=== PATIENT | female | born 1995 | race Caucasian/White ===

== ENCOUNTER 2020-05-16 17:54 | Inpatient (IN) | payer BC ==
[2020-05-16] MEDS ORDERED: Sodium Chloride 0.9% 10 ML Syringe FLUSH PRN (18:41)
[2020-05-16] MEDS ORDERED: Nalbuphine 10 MG/1 ML Vial IVPUSH PRN (18:41)
[2020-05-16] MEDS ORDERED: Oxytocin/Lactated Ringers 10 UNIT/1,000 ML BAG IV SCH ×2 (18:45)
--- NOTE | 2020-05-16 19:16 | PCM.LDHP ---
<Monalisa Malik - Last Filed: 05/16/20 19:05> L&D History of Present Illness - General Date of Service: 05/16/20 Admit Problem/Dx: Patient Status Order with Admit Dx/Problem 05/16/20 18:03 Patient Status [ADT] Routine 05/16/20 18:41 Patient Status [ADT] Routine Admission Diagnosis/Problem Admission Diagnosis/Problem Source of Information: Patient History Limitations: Reports: No Limitations - History of Present Illness Introduction:: Lisa Hwang is a GBS - A- 24 year old female at 38-5weeks gestation age (JERAMY 05/25/20) by 7 week US and LMP who presents today for SROM at 1530 [address]ST[address] She lives in [facility]; she reports that her fluid has been clear. Present Illness Comments:: Lisa Hwang is a GBS - A- 24 year old female at 38-5weeks gestation age (JERAMY 05/25/20) by 7 week US and LMP who presents today for SROM at 1530 MST. Patient has received routine care and denies any complications during her . She received the Tdap vaccine on 02/25/20 and received flu vaccine 12/31/19. Received RhoGAM 02/25/20. OBGYN History 05/30/17: of live female weighing 6 lbs 8 ounces at 37 weeks 5 days gestation; complicated by gestational hypertension G2: current labs: Blood type: A- Antibody screen: Negative Rubella status: immune Hepatitis B surface antigen: unknown RPR: negative HIV: negative Gonorrhea: Negative Chlamydia: negative Anatomy US: 12/31/19 Normal growth, CAROL, anatomy, repeat US 02/25/20 for low lying placenta; No evidence of low lying placenta on repeat US One hour glucose tolerance test: 128 Second trimester hematocrit/hemoglobin: 10.8 Platelets: 277,000 GBS status: negative - Related Data Allergies/Adverse Reactions: Allergies Allergy/AdvReac Type Severity Reaction Status Date / Time No Known Allergies Allergy Verified 03/09/20 19:21 Home Medications: Home Meds Aspirin [Halfprin] 81 mg PO DAILY 03/09/20 [History] No122/Iron/Folic Acid [ Multi Tablet] 1 each PO 03/09/20 [History] Sertraline [Zoloft] 100 mg PO BEDTIME 03/09/20 [History] H&P Review of Systems - Review of Systems: Review Of Systems: See Below General: Reports: No Symptoms HEENT: Reports: No Symptoms Pulmonary: Reports: No Symptoms Cardiovascular: Reports: No Symptoms Gastrointestinal: Reports: No Symptoms Genitourinary: Reports: No Symptoms Musculoskeletal: Reports: No Symptoms Skin: Reports: No Symptoms Psychiatric: Reports: No Symptoms Neurological: Reports: No Symptoms L&D Exam - Exam Exam: See Below - Vital Signs Weight: 120.202 kg - OB Specific Movement: Active Heart Tones: Present - Sweet Score Sweet Score Cervix Position: Posterior Sweet Score Consistency: Soft Sweet Score Effacement: >80% Sweet Score Dilation: 1-2 cm Sweet Score Infant's Station: -2 Sweet Score Total: 7 - Exam General: Alert, Oriented HEENT: Conjunctiva Clear, EOMI Lungs: Clear to Auscultation, Normal Respiratory Effort Cardiovascular: Regular Rate, Regular Rhythm GI/Abdominal Exam: Normal Bowel Sounds, Soft, Non-Tender Extremities: Normal Inspection, No Pedal Edema, Normal Capillary Refill Skin: Warm, Dry, Intact Psychiatric: Alert, Normal Affect, Normal Mood - Problem List (1) 38 weeks gestation of SNOMED Code(s): 01426112 ICD Code: Z3A.38 - 38 WEEKS GESTATION OF Status: Acute Current Visit: Yes (2) Spontaneous rupture of membranes SNOMED Code(s): 761759266 ICD Code: [id number] - Status: Acute Current Visit: Yes (3) History of gestational hypertension SNOMED Code(s): 243328829 ICD Code: Z87.59 - PERSONAL HISTORY OF COMP OF PREG, CHLDBRTH AND THE PUERP Status: Acute Current Visit: Yes (4) Anxiety and depression SNOMED Code(s): 927905254 ICD Code: F41.9 - ANXIETY DISORDER, UNSPECIFIED; F32.9 - MAJOR DEPRESSIVE DISORDER, SINGLE EPISODE, UNSPECIFIED Status: Acute Current Visit: Yes Problem List Initiated/Reviewed/Updated: Yes Orders Last 24hrs: Active Orders 24 hr Category Date Time Status Patient Status [ADT] Routine ADT 05/16/20 18:41 Active Activity as Tolerated [RC] PFP Care 05/16/20 18:41 Active Communication Order [RC] ASDIRECTED Care 05/16/20 18:41 Active Heart Tones [RC] ASDIRECTED Care 05/16/20 18:42 Active Non Stress Test [RC] PER UNIT ROUTINE Care 05/16/20 18:03 Active Notify Provider [RC] PFP Care 05/16/20 18:41 Active Notify Provider [RC] PRN Care 05/16/20 18:41 Active Peripheral IV Care [RC] . DIRECTED Care 05/16/20 18:42 Active Urinary Catheter Assessment [RC] ASDIRECTED Care 05/16/20 18:41 Active Vital Signs [RC] PER UNIT ROUTINE Care 05/16/20 18:03 Active Regular Diet [DIET] Diet 05/16/20 Dinner Active BLOOD BANK HOLD SPECIMEN [BBK] Routine Lab 05/16/20 18:41 Ordered CBC WITH AUTO DIFF [HEME] Routine Lab 05/16/20 18:41 Ordered CORONAVIRUS COVID-19 HEAVEN [MOLEC] Stat Lab 05/16/20 18:30 Received RAPID PLASMA REAGIN,RPR [CHEM] Routine Lab 05/16/20 18:41 Ordered Lactated Ringers [Ringers, Lactated] 1,000 ml Med 05/16/20 18:45 Active IV ASDIRECTED Nalbuphine [Nubain] Med 05/16/20 18:41 Active 10 mg IVPUSH Q2H PRN Oxytocin/Lactated Ringers [Pitocin in LR 10 Units/1,000 Med 05/16/20 18:45 Active ML] 10 unit in 1,000 ml IV .CONTINUOUS Oxytocin/Lactated Ringers [Pitocin in LR 10 Units/1,000 Med 05/16/20 18:45 Active ML] 10 unit in 1,000 ml IV TITRATE Sodium Chloride 0.9% [Saline Flush] Med 05/16/20 18:41 Active 10 ml FLUSH ASDIRECTED PRN Electronic Heart Tones Ext w TOCO [WOMSER] Oth 05/16/20 18:41 Ordered Routine Electronic Heart Tones Internal [WOMSER] Per Unit Oth 05/16/20 18:41 Ordered Routine Peripheral IV Insertion Adult [OM.PC] Routine Oth 05/16/20 18:41 Ordered Resuscitation Status Routine Resus Stat 05/16/20 18:03 Ordered Medication Orders Lactated Ringer's (Ringers, Lactated) 1,000 mls @ 100 mls/hr IV ASDIRECTED SAKSHI Oxytocin/Lactated Ringer's (Pitocin In Lr 10 Units/1,000 Ml) 10 unit in 1,000 mls @ 12 mls/hr IV TITRATE SAKSHI; Protocol Oxytocin/Lactated Ringer's (Pitocin In Lr 10 Units/1,000 Ml) 10 unit in 1,000 mls @ 500 mls/hr IV .CONTINUOUS SAKSHI Nalbuphine HCl (Nalbuphine 10 Mg/1 Ml Vial) 10 mg IVPUSH Q2H PRN PRN Reason: Pain Sodium Chloride (Sodium Chloride 0.9% 10 Ml Syringe) 10 ml FLUSH ASDIRECTED PRN PRN Reason: Keep Vein Open Assessment/Plan Comment:: Lisa Hwang is a GBS - A- 24 year old female at 38-5weeks gestation age (JERAMY 05/25/20) by LMP who presents today for SROM at 1530 MST with clear fluid. 1. Active labor - augmentation of labor with pitocin as indicated 2. Continuous monitoring 3. GBS - 4. A- with negative antibody screen; Rhogam given 02/25/20. Rhogam to be given post delivery 5. Rubella immune 6. Activity as tolerated 7. Small amounts of regular diet 8. Desires epidural 9. Plans to breastfeed 10. Anticipate vaginal delivery unless otherwise indicated 11. Anxiety/depression: Continue Sertaline 100 mg once daily <Robbie Orta F - Last Filed: 05/16/20 19:37> L&D History of Present Illness - General Admit Problem/Dx: Patient Status Order with Admit Dx/Problem 05/16/20 18:03 Patient Status [ADT] Routine 05/16/20 18:41 Patient Status [ADT] Routine Admission Diagnosis/Problem Admission Diagnosis/Problem Orders Last 24hrs: Active Orders 24 hr Category Date Time Status Patient Status [ADT] Routine ADT 05/16/20 18:41 Active Activity as Tolerated [RC] PFP Care 05/16/20 18:41 Active Communication Order [RC] ASDIRECTED Care 05/16/20 18:41 Active Heart Tones [RC] ASDIRECTED Care 05/16/20 18:42 Active Non Stress Test [RC] PER UNIT ROUTINE Care 05/16/20 18:03 Active Notify Provider [RC] ASDIRECTED Care 05/16/20 19:31 Active Notify Provider [RC] PFP Care 05/16/20 18:41 Active Notify Provider [RC] PRN Care 05/16/20 18:41 Active Oxygen Therapy [RC] ASDIRECTED Care 05/16/20 19:31 Active Peripheral IV Care [RC] . DIRECTED Care 05/16/20 18:42 Active Pulse Oximetry [RC] ASDIRECTED Care 05/16/20 19:31 Active Urinary Catheter Assessment [RC] ASDIRECTED Care 05/16/20 18:41 Active Vital Signs [RC] PER UNIT ROUTINE Care 05/16/20 18:03 Active Regular Diet [DIET] Diet 05/16/20 Dinner Active BLOOD BANK HOLD SPECIMEN [BBK] Routine Lab 05/16/20 18:41 Ordered CBC WITH AUTO DIFF [HEME] Routine Lab 05/16/20 19:02 Received CORONAVIRUS COVID-19 HEAVEN [MOLEC] Stat Lab 05/16/20 18:30 Received RAPID PLASMA REAGIN,RPR [CHEM] Routine Lab 05/16/20 19:02 Received Bupivacaine/fentaNYL/NS [fentaNYL/Bupivacaine/NS 2 MCG- Med 05/16/20 19:45 Active 0.125% 100 ML] 100 ml EPIDUR ASDIRECTED Lactated Ringers [Ringers, Lactated] 1,000 ml Med 05/16/20 18:45 Active IV ASDIRECTED Nalbuphine [Nubain] Med 05/16/20 18:41 Active 10 mg IVPUSH Q2H PRN Ondansetron [Zofran] Med 05/16/20 19:31 Active 4 mg IVPUSH ONETIME PRN Oxytocin/Lactated Ringers [Pitocin in LR 10 Units/1,000 Med 05/16/20 18:45 Active ML] 10 unit in 1,000 ml IV .CONTINUOUS Oxytocin/Lactated Ringers [Pitocin in LR 10 Units/1,000 Med 05/16/20 18:45 Active ML] 10 unit in 1,000 ml IV TITRATE Phenylephrine/Normal Saline [Phenylephrine in NS 100 Med 05/16/20 19:31 Active MCG/ML] 0.1 mg IVPUSH Q10M PRN Sodium Chloride 0.9% [Saline Flush] Med 05/16/20 18:41 Active 10 ml FLUSH ASDIRECTED PRN ePHEDrine [ePHEDrine sulfate] Med 05/16/20 19:31 Active 5 mg IVPUSH ASDIRECTED PRN fentaNYL [Sublimaze] Med 05/16/20 19:31 Active 100 mcg EPIDUR Q3H PRN Electronic Heart Tones Ext w TOCO [WOMSER] Oth 05/16/20 18:41 Ordered Routine Electronic Heart Tones Internal [WOMSER] Per Unit Oth 05/16/20 18:41 Ordered Routine Peripheral IV Insertion Adult [OM.PC] Routine Oth 05/16/20 18:41 Ordered Resuscitation Status Routine Resus Stat 05/16/20 18:03 Ordered Medication Orders Ephedrine Sulfate (Ephedrine 50 Mg/Ml Sdv) 5 mg IVPUSH ASDIRECTED PRN PRN Reason: Hypotension Fentanyl (Fentanyl 100 Mcg/2 Ml Sdv) 100 mcg EPIDUR Q3H PRN PRN Reason: Pain Fentanyl/Bupivacaine HCl (Bupivacaine/Fentanyl/Ns 100 Ml Bag) 100 ml EPIDUR ASDIRECTED SAKSHI Lactated Ringer's (Ringers, Lactated) 1,000 mls @ 100 mls/hr IV ASDIRECTED SAKSHI Oxytocin/Lactated Ringer's (Pitocin In Lr 10 Units/1,000 Ml) 10 unit in 1,000 mls @ 12 mls/hr IV TITRATE SAKSHI; Protocol Oxytocin/Lactated Ringer's (Pitocin In Lr 10 Units/1,000 Ml) 10 unit in 1,000 mls @ 500 mls/hr IV .CONTINUOUS SAKSHI Nalbuphine HCl (Nalbuphine 10 Mg/1 Ml Vial) 10 mg IVPUSH Q2H PRN PRN Reason: Pain Ondansetron HCl (Ondansetron 4 Mg/2 Ml Sdv) 4 mg IVPUSH ONETIME PRN PRN Reason: Nausea/Vomiting Phenylephrine HCl (Phenylephrine/Normal Saline 100 Mcg/Ml 10 Ml Syringe) 0.1 mg IVPUSH Q10M PRN PRN Reason: Hypotension Sodium Chloride (Sodium Chloride 0.9% 10 Ml Syringe) 10 ml FLUSH ASDIRECTED PRN PRN Reason: Keep Vein Open
[2020-05-16] MEDS ORDERED: ePHEDrine 50 MG/ML SDV IVPUSH PRN (19:31)
[2020-05-16] MEDS ORDERED: Ondansetron 4 MG/2 ML SDV IVPUSH PRN (19:31)
[2020-05-16] MEDS ORDERED: Phenylephrine/Normal Saline 100 MCG/ML 10 ML Syringe IVPUSH PRN (19:31)
[2020-05-16] MEDS ORDERED: fentaNYL 100 MCG/2 ML SDV EPIDUR PRN (19:31)
--- NOTE | 2020-05-16 19:35 | PCM.PREANE ---
Preanesthetic Assessment - Procedure Proposed Procedure: Epidural - Anesthesia/Transfusion/Family Hx Anesthesia History: Prior Anesthesia Without Reaction Family History of Anesthesia Reaction: No Transfusion History: No Prior Transfusion(s) Intubation History: Unknown - Review of Systems General: No Symptoms Pulmonary: No Symptoms Cardiovascular: No Symptoms ( History of Gestational HTN with prior .), Palpitations Gastrointestinal: No Symptoms (GERD) Neurological: No Symptoms, Headache (migraines) Other: Reports: Depression, Anxiety - Physical Assessment NPO Status Date: 05/16/20 NPO Status Time: 19:30 Vital Signs: HR:91 Sat:98% Temp:36.9 B/P:130/80 Resp:16 Height: 1.75 m Weight: 120.202 kg ASA Class: 3 Mental Status: Alert & Oriented x3 Airway Class: Mallampati = 2 Dentition: Reports: Normal Dentition, Caries Thyro-Mental Finger Breadths: 3 Mouth Opening Finger Breadths: 3 ROM/Head Extension: Full Lungs: Clear to Auscultation, Normal Respiratory Effort Cardiovascular: Regular Rate, Regular Rhythm, No Murmurs - Lab Values: All labs reviewed and noted and within acceptable ranges to proceed with epidural if desired. - Allergies Allergies/Adverse Reactions: Allergies Allergy/AdvReac Type Severity Reaction Status Date / Time No Known Allergies Allergy Verified 03/09/20 19:21 - Anesthesia Plan Pre-Op Medication Ordered: None - Acknowledgements Anesthesia Type Planned: Epidural Pt an Appropriate Candidate for the Planned Anesthesia: Yes Alternatives and Risks of Anesthesia Discussed w Pt/Guardian: Yes Pt/Guardian Understands and Agrees with Anesthesia Plan: Yes PreAnesthesia Questionnaire - HOME MEDS Home Medications: Home Meds Aspirin [Halfprin] 81 mg PO DAILY 03/09/20 [History] No122/Iron/Folic Acid [ Multi Tablet] 1 each PO DAILY 03/09/20 [History] Sertraline [Zoloft] 100 mg PO BEDTIME 03/09/20 [History] Ferrous Sulfate [Iron] 325 mg PO DAILY 05/16/20 [History] - CURRENT (IN HOUSE) MEDS Current Meds: Current Medications Ephedrine Sulfate (Ephedrine 50 Mg/Ml Sdv) 5 mg IVPUSH ASDIRECTED PRN PRN Reason: Hypotension Fentanyl (Fentanyl 100 Mcg/2 Ml Sdv) 100 mcg EPIDUR Q3H PRN PRN Reason: Pain Fentanyl/Bupivacaine HCl (Bupivacaine/Fentanyl/Ns 100 Ml Bag) 100 ml EPIDUR ASDIRECTED SAKSHI Lactated Ringer's (Ringers, Lactated) 1,000 mls @ 100 mls/hr IV ASDIRECTED SAKSHI Oxytocin/Lactated Ringer's (Pitocin In Lr 10 Units/1,000 Ml) 10 unit in 1,000 mls @ 12 mls/hr IV TITRATE SAKSHI; Protocol Oxytocin/Lactated Ringer's (Pitocin In Lr 10 Units/1,000 Ml) 10 unit in 1,000 mls @ 500 mls/hr IV .CONTINUOUS SAKSHI Nalbuphine HCl (Nalbuphine 10 Mg/1 Ml Vial) 10 mg IVPUSH Q2H PRN PRN Reason: Pain Ondansetron HCl (Ondansetron 4 Mg/2 Ml Sdv) 4 mg IVPUSH ONETIME PRN PRN Reason: Nausea/Vomiting Phenylephrine HCl (Phenylephrine/Normal Saline 100 Mcg/Ml 10 Ml Syringe) 0.1 mg IVPUSH Q10M PRN PRN Reason: Hypotension Sodium Chloride (Sodium Chloride 0.9% 10 Ml Syringe) 10 ml FLUSH ASDIRECTED PRN PRN Reason: Keep Vein Open
[2020-05-16] MEDS ORDERED: Bupivacaine/fentaNYL/NS 100 ML Bag EPIDUR SCH (19:45)
[2020-05-16] MEDS: Lactated Ringers 1,000 ML IV SCH ×2 (20:13→22:23)
[2020-05-17] MEDS: Lactated Ringers 1,000 ML IV SCH (02:07)
[2020-05-17] MEDS ORDERED: Witch Hazel Medicated Pads 40/Jar TOP PRN (04:54)
[2020-05-17] MEDS ORDERED: Benzocaine/Menthol 20%-0.5% Spray 56 GM Canister TOP PRN (04:54)
[2020-05-17] MEDS ORDERED: Docusate Sodium 100 MG Cap PO PRN (04:54)
[2020-05-17] MEDS ORDERED: Acetaminophen 325 MG Tab PO PRN (04:54)
--- NOTE | 2020-05-17 05:10 | PCM.DEL ---
<Monalisa Malik - Last Filed: 05/17/20 05:00> L & D Note - General Info Date of Service: 05/17/20 Mother's Due Date: 05/25/20 - Delivery Note Labor: Spontaneous Cervical Ripening Method: Oxytocin Delivery Outcome: Livebirth Delivery Method: Spontaneous Vaginal Delivery-Single Infant Delivery Mode: Spontaneous Presentation: Left Occiput Anterior (GERTRUDE) Nuchal Cord: Present, Reduced (Loose nuchal cord reduced over the infant's head) Anesthesia Type: Epidural Amniotic Fluid Description: Clear Episiotomy Type: None Laceration: 1st Degree (Midline laceration, noted abrasion periurethral that was hemodynamically stable) Suture type: Other (Monocryl) Suture size: 2-0 Placenta: Intact, Spontaneous Cord: 3 Vessels Estimated Blood Loss: 100 Resuscitation Needed: No : Bulb Syringe, Stimulated, Warmed Provider: Marito Archibald Score 1 min: 9 Score 5 min: 9 Second Stage Interventions: Reports: Encouragement Given Delivery Comments (Free Text/Narrative):: Stage I: Lisa Hwang is a GBS - A- 24 year old female at 38-5weeks gestation age (JERAMY 05/25/20) by 7 week US and LMP who presented to L&D today for SROM at 1530 MST with clear fluid. Pitocin was given for augmentation of labor. Patient progressed to complete and pushing Stage II: of a live female weighing 3400 g (7 lbs 8 ounces) at 0431 with APGARs of 9/9. Single loose nuchal cord was reduced over the 's head. The was placed on the mother's abdomen, was suctioned, dried and stimulated. The cord was then cut after a period of time by the 's father and the infant went to the warmer for vitals. The vaginal mucosa was inspected; noted midline first degree laceration. This was repaired with a single figure of 8 stitch. Further inspection demonstrated a small hemodynamically stable abrasion periurethral. Stage III: Intact Placenta was delivered at 0441 in Siddiqi presentation. Placenta inspected and found to be intact. Noted 3 vessel cord. Uterus appeared firm and at the umbilicus. Mother and baby stable to recovery. - General Info Date of Service: 03/23/21 - Patient Data Vitals - Most Recent: Last Vital Signs Temp 98.4 F 05/16/20 20:37 Pulse 91 05/16/20 20:37 Resp 16 05/16/20 20:37 BP 130/80 05/16/20 20:37 Pulse Ox 98 05/16/20 20:37 Weight - Most Recent: 120.202 kg I&O - Last 24 Hours: Intake & Output 05/16/20 05/16/20 05/17/20 14:59 22:59 06:59 Intake Total 1999 Balance 1999 Lab Results Last 24 Hours: Laboratory Results - last 24 hr 05/16/20 05/16/20 05/16/20 Range/Units 18:30 19:02 19:02 WBC 10.71 H (3.98-10.04) K/mm3 RBC 3.97 L (3.98-5.22) M/mm3 Hgb 11.3 (11.2-15.7) gm/dl Hct 35.7 (34.1-44.9) % MCV 89.9 (79.4-94.8) fl MCH 28.5 (25.6-32.2) pg MCHC 31.7 L (32.2-35.5) g/dl RDW Std Deviation 47.8 H (36.4-46.3) fL Plt Count 337 (182-369) K/mm3 MPV 10.1 (9.4-12.3) fl Neut % (Auto) 70.8 (34.0-71.1) % Lymph % (Auto) 19.6 (19.3-51.7) % Maverick % (Auto) 8.1 (4.7-12.5) % Eos % (Auto) 1.0 (0.7-5.8) Baso % (Auto) 0.1 (0.1-1.2) % Neut # (Auto) 7.58 H (1.56-6.13) K/mm3 Lymph # (Auto) 2.10 (1.18-3.74) K/mm3 Maverick # (Auto) 0.87 H (0.24-0.36) K/mm3 Eos # (Auto) 0.11 (0.04-0.36) K/mm3 Baso # (Auto) 0.01 (0.01-0.08) K/mm3 RPR Non-reactive (NONREACTIVE) SARS-CoV-2 RNA (HEAVEN) Negative (NEGATIVE) Med Orders - Current: Current Medications Acetaminophen (Acetaminophen 325 Mg Tab) 650 mg PO Q4H PRN PRN Reason: mild pain or fever Benzocaine/Menthol (Benzocaine/Menthol 20%-0.5% Brigantine 56 Gm Canister) 0 gm TOP ASDIRECTED PRN PRN Reason: Perineal Comfort Measure Docusate Sodium (Docusate Sodium 100 Mg Cap) 100 mg PO BID PRN PRN Reason: Constipation Ephedrine Sulfate (Ephedrine 50 Mg/Ml Sdv) 5 mg IVPUSH ASDIRECTED PRN PRN Reason: Hypotension Fentanyl (Fentanyl 100 Mcg/2 Ml Sdv) 100 mcg EPIDUR Q3H PRN PRN Reason: Pain Last Admin: 05/16/20 22:02 Dose: 100 mcg Documented by: Fentanyl/Bupivacaine HCl (Bupivacaine/Fentanyl/Ns 100 Ml Bag) 100 ml EPIDUR ASDIRECTED SAKSHI Last Admin: 05/16/20 22:02 Dose: 100 ml Documented by: Lactated Ringer's (Ringers, Lactated) 1,000 mls @ 100 mls/hr IV ASDIRECTED SAKSHI Last Admin: 05/17/20 02:07 Dose: 100 mls/hr Documented by: Oxytocin/Lactated Ringer's (Pitocin In Lr 10 Units/1,000 Ml) 10 unit in 1,000 mls @ 12 mls/hr IV TITRATE SAKSHI; Protocol Last Titration: 05/17/20 02:07 Dose: 1 munits/min, 6 mls/hr Documented by: Oxytocin/Lactated Ringer's (Pitocin In Lr 10 Units/1,000 Ml) 10 unit in 1,000 mls @ 500 mls/hr IV .CONTINUOUS SAKSHI Ibuprofen (Ibuprofen 600 Mg Tab) 600 mg PO Q4H PRN PRN Reason: Mild pain or fever Nalbuphine HCl (Nalbuphine 10 Mg/1 Ml Vial) 10 mg IVPUSH Q2H PRN PRN Reason: Pain Non-Formulary Medication (Sertraline) 100 mg PO BEDTIME SAKSHI Ondansetron HCl (Ondansetron 4 Mg/2 Ml Sdv) 4 mg IVPUSH ONETIME PRN PRN Reason: Nausea/Vomiting Phenylephrine HCl (Phenylephrine/Normal Saline 100 Mcg/Ml 10 Ml Syringe) 0.1 mg IVPUSH Q10M PRN PRN Reason: Hypotension Prenat Multivit/Seed Yeast Operator/Iron/Folic Ac ( Multivitamin With Calcium/Folic Acid/Iron Tab) 1 each PO DAILY SAKSHI Sodium Chloride (Sodium Chloride 0.9% 10 Ml Syringe) 10 ml FLUSH ASDIRECTED PRN PRN Reason: Keep Vein Open Witch Nandini (Witch Nandini Medicated Pads 40/Jar) 1 pad TOP ASDIRECTED PRN PRN Reason: Perineal Comfort Measure - Problem List & Annotations (1) 38 weeks gestation of SNOMED Code(s): 34994748 Code(s): Z3A.38 - 38 WEEKS GESTATION OF Status: Acute (2) Spontaneous rupture of membranes SNOMED Code(s): 288309250 Code(s): TYU6948 - Status: Acute (3) History of gestational hypertension SNOMED Code(s): 914257193 Code(s): Z87.59 - PERSONAL HISTORY OF COMP OF PREG, CHLDBRTH AND THE PUERP Status: Acute (4) Anxiety and depression SNOMED Code(s): 387196623 Code(s): F41.9 - ANXIETY DISORDER, UNSPECIFIED; F32.9 - MAJOR DEPRESSIVE DISORDER, SINGLE EPISODE, UNSPECIFIED Status: Acute (5) Spontaneous vaginal delivery SNOMED Code(s): 168122718 Code(s): O80 - ENCOUNTER FOR FULL-TERM UNCOMPLICATED DELIVERY Status: Acute - My Orders Last 24 Hours: My Active Orders 05/17/20 04:53 Patient Status Manage Transfer [TRANSFER] Routine 05/17/20 04:54 May Shower [RC] ASDIRECTED Acetaminophen [TylenoL] 650 mg PO Q4H PRN Benzocaine/Menthol [Dermoplast Pain Relief Brigantine] See Dose Instructions TOP ASDIRECTED PRN Docusate Sodium [Colace] 100 mg PO BID PRN Ibuprofen [Motrin] 600 mg PO Q4H PRN witch Nandini [Tucks] 1 pad TOP ASDIRECTED PRN 05/17/20 04:55 Activity as Tolerated [RC] PER UNIT ROUTINE Vital Signs [RC] ASDIRECTED Assess Lochia [WOMSER] Per Unit Routine Assess Uterine Involution [WOMSER] Per Unit Routine Breast Pump [WOMSER] Per Unit Routine Ice Therapy [OM.PC] Per Unit Routine Medication Administration Instruction [OM.PC] Routine Perineal Care [OM.PC] Per Unit Routine Sitz Bath [OM.PC] Per Unit Routine 05/17/20 05:00 Heat Therapy [OM.PC] PRN 05/17/20 09:00 Vit with Ca/FA/Iron [ Plus Iron] 1 each PO DAILY 05/17/20 21:00 Sertraline 100 mg PO BEDTIME 05/18/20 05:00 Heat Therapy [OM.PC] PRN - Plan Plan:: of a live female weighing 3400 g (7 lbs 8 ounces) at 0431 with APGARs of 9/9 to a GBS - A- 24 year old G2 now P2002 female at 38-6 weeks gestation age (JERAMY 05/25/20). 1. Post day 0 2. GBS - 3. A- with negative antibody screen; Rhogam given 02/25/20. Rhogam to be given 4. Rubella immune 5. Activity as tolerated 6. Regular diet 7. Plans to breastfeed 8. Anxiety/depression: Continue Sertaline 100 mg once daily 9. History of gestational hypertension: continue to monitor blood pressure 10. care per unit routine 11. Anticipate discharge in 24-48 hours pending keno manager's recommendation <Robbie Orta F - Last Filed: 05/19/20 06:23> - Patient Data Vitals - Most Recent: Last Vital Signs Temp 37.1 C 05/18/20 09:00 Pulse 75 05/18/20 09:00 Resp 18 05/18/20 09:00 BP 151/88 H 05/18/20 09:00 Pulse Ox 97 05/18/20 09:00 I&O - Last 24 Hours: Intake & Output 05/18/20 05/18/20 05/19/20 14:59 22:59 06:59 Intake Total 120 Balance 120 Med Orders - Current: Current Medications Discontinued Medications Acetaminophen (Acetaminophen 325 Mg Tab) 650 mg PO Q4H PRN PRN Reason: mild pain or fever Benzocaine/Menthol (Benzocaine/Menthol 20%-0.5% Brigantine 56 Gm Canister) 0 gm TOP ASDIRECTED PRN PRN Reason: Perineal Comfort Measure Last Admin: 05/17/20 06:17 Dose: 1 canister Documented by: Bupivacaine HCl (Bupivacaine 0.25% 10 Ml Sdv) 10 ml .ROUTE .STK-MED ONE Stop: 05/17/20 23:01 Docusate Sodium (Docusate Sodium 100 Mg Cap) 100 mg PO BID PRN PRN Reason: Constipation Last Admin: 05/17/20 06:17 Dose: 100 mg Documented by: Ephedrine Sulfate (Ephedrine 50 Mg/Ml Sdv) 5 mg IVPUSH ASDIRECTED PRN PRN Reason: Hypotension Fentanyl (Fentanyl 100 Mcg/2 Ml Sdv) 100 mcg EPIDUR Q3H PRN PRN Reason: Pain Last Admin: 05/16/20 22:02 Dose: 100 mcg Documented by: Fentanyl/Bupivacaine HCl (Bupivacaine/Fentanyl/Ns 100 Ml Bag) 100 ml EPIDUR ASDIRECTED SAKSHI Last Admin: 05/16/20 22:02 Dose: 100 ml Documented by: Lactated Ringer's (Ringers, Lactated) 1,000 mls @ 100 mls/hr IV ASDIRECTED [facility] Last Admin: 05/17/20 02:07 Dose: 100 mls/hr Documented by: Oxytocin/Lactated Ringer's (Pitocin In Lr 10 Units/1,000 Ml) 10 unit in 1,000 mls @ 12 mls/hr IV TITRATE SAKSHI; Protocol Last Titration: 05/17/20 02:07 Dose: 1 munits/min, 6 mls/hr Documented by: Oxytocin/Lactated Ringer's (Pitocin In Lr 10 Units/1,000 Ml) 10 unit in 1,000 mls @ 500 mls/hr IV .CONTINUOUS [facility] Ibuprofen (Ibuprofen 600 Mg Tab) 600 mg PO Q4H PRN PRN Reason: Mild pain or fever Last Admin: 05/17/20 21:53 Dose: 600 mg Documented by: Nalbuphine HCl (Nalbuphine 10 Mg/1 Ml Vial) 10 mg IVPUSH Q2H PRN PRN Reason: Pain Ondansetron HCl (Ondansetron 4 Mg/2 Ml Sdv) 4 mg IVPUSH ONETIME PRN PRN Reason: Nausea/Vomiting Phenylephrine HCl (Phenylephrine/Normal Saline 100 Mcg/Ml 10 Ml Syringe) 0.1 mg IVPUSH Q10M PRN PRN Reason: Hypotension Prenat Multivit/[place]/Iron/Folic Ac ( Multivitamin With Calcium/Folic Acid/Iron Tab) 1 each PO DAILY [facility] Last Admin: 05/18/20 10:55 Dose: Not Given Documented by: Sertraline HCl (Sertraline 50 Mg Tab) 100 mg PO BEDTIME [facility] Last Admin: 05/17/20 20:15 Dose: 100 mg Documented by: Sodium Chloride (Sodium Chloride 0.9% 10 Ml Syringe) 10 ml FLUSH ASDIRECTED PRN PRN Reason: Keep Vein Open Witch Nandini (Witch Nandini Medicated Pads 40/Jar) 1 pad TOP ASDIRECTED PRN PRN Reason: Perineal Comfort Measure Last Admin: 05/17/20 06:17 Dose: 1 can Documented by: - Problem List Review Problem List Initiated/Reviewed/Updated: Yes
[2020-05-17] MEDS: Ibuprofen 600 MG Tab PO PRN ×3 (06:18→21:53)
[2020-05-17] MEDS: Prenatal Multivitamin with Calcium/Folic Acid/Iron Tab PO SCH (13:26)
[2020-05-17] MEDS ORDERED: Sertraline 50 MG Tab PO SCH (21:00)
[2020-05-17] MEDS ORDERED: Bupivacaine 0.25% 10 ML SDV ONE (23:00)
--- NOTE | 2020-05-18 06:48 | PCM.PNPP ---
- General Info Date of Service: 05/18/20 Functional Status: Reports: Pain Controlled, Tolerating Diet, Ambulating, Urinating - Review of Systems General: Reports: No Symptoms Pulmonary: Reports: No Symptoms Cardiovascular: Reports: No Symptoms Gastrointestinal: Reports: No Symptoms Genitourinary: Reports: No Symptoms Musculoskeletal: Reports: No Symptoms Neurological: Reports: No Symptoms - Patient Data Vital Signs - Most Recent: Last Vital Signs Temp 36.5 C 05/18/20 03:18 Pulse 73 05/18/20 03:18 Resp 16 05/18/20 03:18 BP 143/69 H 05/18/20 03:18 Pulse Ox 98 05/18/20 03:18 Weight - Most Recent: 120.202 kg I&O - Last 24 Hours: Intake & Output 05/17/20 05/17/20 05/18/20 14:59 22:59 06:59 Intake Total 2 Balance 2 Lab Results - Last 24 Hours: Laboratory Results - last 24 hr 05/17/20 Range/Units 09:36 Blood Type A NEGATIVE Gel Antibody Screen Negative Screen 0 ros/5 flds - neg RhIG Candidate? Yes Rhogam Indicated Yes, baby rh pos H Med Orders - Current: Current Medications Acetaminophen (Acetaminophen 325 Mg Tab) 650 mg PO Q4H PRN PRN Reason: mild pain or fever Benzocaine/Menthol (Benzocaine/Menthol 20%-0.5% [place] 56 Gm Canister) 0 gm TOP ASDIRECTED PRN PRN Reason: Perineal Comfort Measure Last Admin: 05/17/20 06:17 Dose: 1 canister Documented by: Docusate Sodium (Docusate Sodium 100 Mg Cap) 100 mg PO BID PRN PRN Reason: Constipation Last Admin: 05/17/20 06:17 Dose: 100 mg Documented by: Ibuprofen (Ibuprofen 600 Mg Tab) 600 mg PO Q4H PRN PRN Reason: Mild pain or fever Last Admin: 05/17/20 21:53 Dose: 600 mg Documented by: Prenat Multivit/[place]/Iron/Folic Ac ( Multivitamin With Calcium/Folic Acid/Iron Tab) 1 each PO DAILY [facility] Last Admin: 05/17/20 13:26 Dose: Not Given Documented by: Sertraline HCl (Sertraline 50 Mg Tab) 100 mg PO BEDTIME SAKSHI Last Admin: 05/17/20 20:15 Dose: 100 mg Documented by: Rey Delatorre (Rey Delatorre Medicated Pads 40/Jar) 1 pad TOP ASDIRECTED PRN PRN Reason: Perineal Comfort Measure Last Admin: 05/17/20 06:17 Dose: 1 can Documented by: Discontinued Medications Bupivacaine HCl (Bupivacaine 0.25% 10 Ml Sdv) 10 ml .ROUTE .STK-MED ONE Stop: 05/17/20 23:01 Ephedrine Sulfate (Ephedrine 50 Mg/Ml Sdv) 5 mg IVPUSH ASDIRECTED PRN PRN Reason: Hypotension Fentanyl (Fentanyl 100 Mcg/2 Ml Sdv) 100 mcg EPIDUR Q3H PRN PRN Reason: Pain Last Admin: 05/16/20 22:02 Dose: 100 mcg Documented by: Fentanyl/Bupivacaine HCl (Bupivacaine/Fentanyl/Ns 100 Ml Bag) 100 ml EPIDUR ASDIRECTED SAKSHI Last Admin: 05/16/20 22:02 Dose: 100 ml Documented by: Lactated Ringer's (Ringers, Lactated) 1,000 mls @ 100 mls/hr IV ASDIRECTED SAKSHI Last Admin: 05/17/20 02:07 Dose: 100 mls/hr Documented by: Oxytocin/Lactated Ringer's (Pitocin In Lr 10 Units/1,000 Ml) 10 unit in 1,000 mls @ 12 mls/hr IV TITRATE SAKSHI; Protocol Last Titration: 05/17/20 02:07 Dose: 1 munits/min, 6 mls/hr Documented by: Oxytocin/Lactated Ringer's (Pitocin In Lr 10 Units/1,000 Ml) 10 unit in 1,000 mls @ 500 mls/hr IV .CONTINUOUS SAKSHI Nalbuphine HCl (Nalbuphine 10 Mg/1 Ml Vial) 10 mg IVPUSH Q2H PRN PRN Reason: Pain Ondansetron HCl (Ondansetron 4 Mg/2 Ml Sdv) 4 mg IVPUSH ONETIME PRN PRN Reason: Nausea/Vomiting Phenylephrine HCl (Phenylephrine/Normal Saline 100 Mcg/Ml 10 Ml Syringe) 0.1 mg IVPUSH Q10M PRN PRN Reason: Hypotension Sodium Chloride (Sodium Chloride 0.9% 10 Ml Syringe) 10 ml FLUSH ASDIRECTED PRN PRN Reason: Keep Vein Open - Interaction Disposition, : in Room with Family Interaction: Holding Infant Feeding: Breastfed Infant; Nursed Well Support Person: Significant Other - Recovery Exam Fundal Tone: Firm Fundal Level: 1 Fingerbreadths Below Umbilicus Fundal Placement: Midline Lochia Amount: Small Lochia Color: Rubra/Red Perineum Description: Other (see below) Other Perinuem Description: 1st degree with repair Episiotomy/Laceration: Approximated Bladder Status: Voiding Urinary Elimination: Voided - Exam General: Alert, Oriented, Cooperative GI/Abdominal Exam: Soft, Non-Tender - Problem List & Annotations (1) 38 weeks gestation of SNOMED Code(s): 78196384 Code(s): Z3A.38 - 38 WEEKS GESTATION OF Status: Acute (2) Gestational hypertension SNOMED Code(s): 251366886 Code(s): O13.9 - GESTATIONAL HTN W/O SIGNIFICANT PROTEINURIA, UNSP TRIMESTER Status: Acute Qualifiers: Trimester: third trimester Qualified Code(s): O13.3 - Gestational [-induced] hypertension without significant proteinuria, third trimester (3) Spontaneous vaginal delivery SNOMED Code(s): 425911557 Code(s): O80 - ENCOUNTER FOR FULL-TERM UNCOMPLICATED DELIVERY Status: Acute - Problem List Review Problem List Initiated/Reviewed/Updated: Yes - Assessment Assessment:: PPD#1 - Plan Plan:: Routine cares Breast feeding Received Rhogam yesterday, baby RH positive BP check in 1 week, currently asymptomatic Discharge home today
--- NOTE | 2020-05-18 06:52 | PCM.DCSUM1 ---
Discharge Summary - Discharge Data Discharge Date: 05/18/20 Discharge Disposition: Home, Self-Care 01 Condition: Good - Referral to Home Health Primary Care Physician: Heather Martinez MD - Patient Summary/Data Complications: None Consults: None Recommended Follow-up Testing/Procedures: Follow up in 1 week for BP check, 3 weeks for check Hospital Course: 24 y/o at 38 5/7 wks presented wtih SROM. Incidentally noted to have elevated BP's/gestational HTN as well. Progressed well and underwent an uncomplicated . See delivery note. did well with BP's remaining mild range. Was discharged home on PPD#1 - Patient Instructions Diet: Regular Diet as Tolerated Activity: As Tolerated Activity, Other: Pelvic rest for 6 weeks Driving: May Drive Today Showering/Bathing: May Shower Showering/Bathing, Other: May Bathe Notify Provider of: Fever, Increased Pain, Swelling and Redness, Drainage, Nausea and/or Vomiting - Discharge Plan *PRESCRIPTION DRUG MONITORING PROGRAM REVIEWED*: No *COPY OF PRESCRIPTION DRUG MONITORING REPORT IN PATIENT ALEXANDRA: No Home Medications: Home Meds No122/Iron/Folic Acid [ Multi Tablet] 1 each PO DAILY 03/09/20 [History] Sertraline [Zoloft] 100 mg PO BEDTIME 03/09/20 [History] Docusate Sodium [Colace] 100 mg PO BID PRN cap 05/18/20 [Rx] Ibuprofen [Motrin] 600 mg PO Q4H PRN tablet 05/18/20 [Rx] Patient Handouts: Exclusive , Mastitis, Vaginal Delivery, Breast Engorgement Referrals: Heather Martinez MD [Primary Care Provider] - (1 week BP check, can be done in [place] 3 weeks check, can be telehealth ) - Discharge Summary/Plan Comment DC Time >30 min.: No - Patient Data Vitals - Most Recent: Last Vital Signs Temp 36.5 C 05/18/20 03:18 Pulse 73 05/18/20 03:18 Resp 16 05/18/20 03:18 BP 143/69 H 05/18/20 03:18 Pulse Ox 98 05/18/20 03:18 Weight - Most Recent: 120.202 kg I&O - Last 24 hours: Intake & Output 03/05/17/20 05/18/20 14:59 22:59 06:59 Intake Total 2 Balance 2 Lab Results - Last 24 hrs: Laboratory Results - last 24 hr 05/17/20 Range/Units 09:36 Blood Type A NEGATIVE Gel Antibody Screen Negative Screen 0 ros/5 flds - neg RhIG Candidate? Yes Rhogam Indicated Yes, baby rh pos H Med Orders - Current: Current Medications Acetaminophen (Acetaminophen 325 Mg Tab) 650 mg PO Q4H PRN PRN Reason: mild pain or fever Benzocaine/Menthol (Benzocaine/Menthol 20%-0.5% [place] 56 Gm Canister) 0 gm TOP ASDIRECTED PRN PRN Reason: Perineal Comfort Measure Last Admin: 05/17/20 06:17 Dose: 1 canister Documented by: Docusate Sodium (Docusate Sodium 100 Mg Cap) 100 mg PO BID PRN PRN Reason: Constipation Last Admin: 05/17/20 06:17 Dose: 100 mg Documented by: Ibuprofen (Ibuprofen 600 Mg Tab) 600 mg PO Q4H PRN PRN Reason: Mild pain or fever Last Admin: 05/17/20 21:53 Dose: 600 mg Documented by: Prenat Multivit/[place]/Iron/Folic Ac ( Multivitamin With Calcium/Folic Acid/Iron Tab) 1 each PO DAILY SAKSHI Last Admin: 05/17/20 13:26 Dose: Not Given Documented by: Sertraline HCl (Sertraline 50 Mg Tab) 100 mg PO BEDTIME SAKSHI Last Admin: 05/17/20 20:15 Dose: 100 mg Documented by: Rey Delatorre (Rey Delatorre Medicated Pads 40/Jar) 1 pad TOP ASDIRECTED PRN PRN Reason: Perineal Comfort Measure Last Admin: 05/17/20 06:17 Dose: 1 can Documented by: Discontinued Medications Bupivacaine HCl (Bupivacaine 0.25% 10 Ml Sdv) 10 ml .ROUTE .STK-MED ONE Stop: 05/17/20 23:01 Ephedrine Sulfate (Ephedrine 50 Mg/Ml Sdv) 5 mg IVPUSH ASDIRECTED PRN PRN Reason: Hypotension Fentanyl (Fentanyl 100 Mcg/2 Ml Sdv) 100 mcg EPIDUR Q3H PRN PRN Reason: Pain Last Admin: 05/16/20 22:02 Dose: 100 mcg Documented by: Fentanyl/Bupivacaine HCl (Bupivacaine/Fentanyl/Ns 100 Ml Bag) 100 ml EPIDUR ASDIRECTED SAKSHI Last Admin: 05/16/20 22:02 Dose: 100 ml Documented by: Lactated Ringer's (Ringers, Lactated) 1,000 mls @ 100 mls/hr IV ASDIRECTED [facility] Last Admin: 05/17/20 02:07 Dose: 100 mls/hr Documented by: Oxytocin/Lactated Ringer's (Pitocin In Lr 10 Units/1,000 Ml) 10 unit in 1,000 mls @ 12 mls/hr IV TITRATE SAKSHI; Protocol Last Titration: 05/17/20 02:07 Dose: 1 munits/min, 6 mls/hr Documented by: Oxytocin/Lactated Ringer's (Pitocin In Lr 10 Units/1,000 Ml) 10 unit in 1,000 mls @ 500 mls/hr IV .CONTINUOUS SAKSHI Nalbuphine HCl (Nalbuphine 10 Mg/1 Ml Vial) 10 mg IVPUSH Q2H PRN PRN Reason: Pain Ondansetron HCl (Ondansetron 4 Mg/2 Ml Sdv) 4 mg IVPUSH ONETIME PRN PRN Reason: Nausea/Vomiting Phenylephrine HCl (Phenylephrine/Normal Saline 100 Mcg/Ml 10 Ml Syringe) 0.1 mg IVPUSH Q10M PRN PRN Reason: Hypotension Sodium Chloride (Sodium Chloride 0.9% 10 Ml Syringe) 10 ml FLUSH ASDIRECTED PRN PRN Reason: Keep Vein Open
--- NOTE | 2020-05-18 08:56 | PCM48HPAN ---
Post Anesthesia Note - EVALUATION WITHIN 48HRS OF ANESTHETIC Vital Signs in Normal Range: Yes Patient Participated in Evaluation: Yes Respiratory Function Stable: Yes Airway Patent: Yes Cardiovascular Function Stable: Yes Hydration Status Stable: Yes Pain Control Satisfactory: Yes Nausea and Vomiting Control Satisfactory: Yes Mental Status Recovered: Yes Vital Signs: Last Vital Signs Temp 36.5 C 05/18/20 03:18 Pulse 73 05/18/20 03:18 Resp 16 05/18/20 03:18 BP 143/69 H 05/18/20 03:18 Pulse Ox 98 05/18/20 03:18
[2020-05-18] MEDS: Prenatal Multivitamin with Calcium/Folic Acid/Iron Tab PO SCH (10:55)
== END 2020-05-18 10:44 | disposition home or self-care (01) | DRG 560 ==
LOC: JD.OB 17:54 → JD.OBCHECK 17:54 → JD.OB 18:03 → JD.OBCHECK 18:03 → OBSVTOIN 05-17 04:31 → JD.OB 05-17 10:00
PROVIDERS: ADMIT Obstetrics & Gynecology; ATTEND Obstetrics & Gynecology
PROC: 10E0XZZ Delivery of Products of Conception, External Approach (ICD-10-PCS; principal; 2020-05-17)
PROC: 3E0P7VZ Introduction of Hormone into Female Reproductive, Via Natural or Artificial Opening (ICD-10-PCS; 2020-05-17)
PROC: 0HQ9XZZ Repair Perineum Skin, External Approach (ICD-10-PCS; 2020-05-17)
PROC: 3E0R3BZ Introduction of Anesthetic Agent into Spinal Canal, Percutaneous Approach (ICD-10-PCS; 2020-05-17)
PROC: 00HU33Z Insertion of Infusion Device into Spinal Canal, Percutaneous Approach (ICD-10-PCS; 2020-05-17)
PROC: 3E0234Z Introduction of Serum, Toxoid and Vaccine into Muscle, Percutaneous Approach (ICD-10-PCS; 2020-05-17)
DX: O13.4 Gestational [pregnancy-induced] hypertension without significant proteinuria, complicating childbirth (principal); Z37.0 Single live birth; O99.344 Other mental disorders complicating childbirth; F32.9 Major depressive disorder, single episode, unspecified; F41.9 Anxiety disorder, unspecified; O69.81X0 Labor and delivery complicated by cord around neck, without compression, not applicable or unspecified; O70.0 First degree perineal laceration during delivery; Z20.822 Contact with and (suspected) exposure to COVID-19; O26.893 Other specified pregnancy related conditions, third trimester; Z67.11 Type A blood, Rh negative; Z3A.38 38 weeks gestation of pregnancy; Z79.82 Long term (current) use of aspirin; Z79.899 Other long term (current) drug therapy
CPT/HCPCS: 01967; 36415; 51702; 59025; 59409; 85025; 85461; 86592; 86850; 86900; 86901; A9270-GY; J2590; J2790; J3010; J3490; J7120; U0002